=== PATIENT | male | born 1995 | race Caucasian/White ===

== ENCOUNTER 2024-03-23 10:41 | Outpatient (CLI) | payer OTHER ==
--- NOTE | 2024-03-23 12:03 | Ultrasound Report ---
PROCEDURE: Soft Tissue Head or Neck INDICATIONS: ENLARGED LYMPH NODES TECHNIQUE: Real-time scanning was performed of the neck, with image documentation. COMPARISON: None FINDINGS: Prominent lymph nodes are seen within the bilateral neck. These appear to have a normal fatty hilum w ithout significant cortical thickening. IMPRESSION: Prominent lymph nodes in the bilateral neck which are overall normal in morphology. Lymph nodes may b e reactive in etiology. Other differential considerations include lymphomatous process or metastases. Recommend follow-up ultrasound to assess for resolution. Reviewed by: Luke Guy MD on 03/23/2024 12:02 PM PDT Approved by: Luke Guy MD on 03/23/2024 12:02 PM PDT Station ID: [id number]
== END 2024-03-23 10:42 | disposition home or self-care (01) ==
LOC: DI 10:41
DX: R59.0 Localized enlarged lymph nodes (principal)